=== PATIENT | female | born 1955 | race Caucasian/White ===

== ENCOUNTER 2021-05-29 14:31 | Observation (INO) ==
[2021-05-29] MEDS ORDERED: Naloxone 0.4 MG/ML INJ IVP PRN (17:26)
[2021-05-29] MEDS ORDERED: *HR* LORazepam 2 MG/ML VIAL IVP PRN ×2 (17:30)
[2021-05-29] MEDS: *HR* LORazepam 2 MG/ML VIAL IVP PRN ×2 (17:45→21:29)
[2021-05-29] MEDS ORDERED: Perflutren Lipid Microsphere 1.3 ML in 0.9 % Sodium Chloride 8.7 ML IVP PRN (17:59)
[2021-05-30 03:12] LABS: Basophils % 0.6 %; Eosinophils % 0.7 %; Hemoglobin 15.4 g/dL (11.5-15.4); Immature Granulocytes % 0.4 % (0-4); Lymphocytes # 0.9 K/mcL (0.6-4.6); Lymphocytes % 16.2 %; Mean Corpuscular Hemoglobin 37.7 pg (28.0-33.3); Mean Corpuscular Volume 107.8 fL (83.0-100.0); Monocytes # 0.4 K/mcL (0.0-1.3); Monocytes % 6.7 %; Neutrophils # 4.1 K/mcL (1.6-8.9); Platelet Count 123 K/mcL (140-400); Red Blood Count 4.08 M/mcL (3.82-4.97); Red Cell Distribution Width 11.9 % (11.5-14.5); Segmented Neutrophils % 75.4 %; White Blood Count 5.4 K/mcL (4.3-11.1)
[2021-05-30 03:28] LABS: Chol/HDL Ratio 3.2 (0-4.9); Cholesterol 198 mg/dL (< 200); HDL Cholesterol 61 mg/dL (40-59); LDL Cholesterol,Calculated 115 mg/dL (< 100); Triglycerides 109 mg/dL (< 150)
[2021-05-30] MEDS ORDERED: *HR* Enoxaparin 40 MG/0.4 ML SYRINGE SQ SCH (06:00)
[2021-05-30] MEDS ORDERED: Aspirin 81 MG TAB.CHEW PO SCH (09:00)
[2021-05-30 11:05] LABS: Estimated Average Glucose 120 mg/dl; Hemoglobin A1C 5.8 %
[2021-05-30 11:13] LABS: Folate 3.9 ng/mL (3.0-16.0)
[2021-05-30 14:32] VITALS: BP 137/86; PULSE 93; TEMP 97.9; O2SAT 94
[2021-05-31 08:39] LABS: BUN/Creatinine Ratio 12 (6-26); Blood Urea Nitrogen 11 mg/dL (8-23); Calcium 9.2 mg/dL (8.6-10.3); Carbon Dioxide 24 mEq/L (23-29); Chloride 100 mEq/L (98-107); Glucose 140 mg/dL (70-105); Osmolality,Calculated 284 (280-300); Potassium 3.8 mEq/L (3.5-5.1); Sodium 136 mEq/L (136-145); eGFR For African Americans > 60 (> 60); eGFR For Non-African Americans > 60 (> 60)
== END 2021-05-30 18:03 | disposition home or self-care (01) ==
LOC: 3BNU
PROVIDERS: ADMIT Internal Medicine; ATTEND Internal Medicine